=== PATIENT | female | born 1990 | race Caucasian/White ===

== ENCOUNTER 2019-12-13 01:33 | Day surgery (SDC) | payer OTHER, SELFPAY ==
[2019-12-08 15:22] VITALS: BMI 19.0
--- NOTE | 2019-12-12 11:00 | HP_ITS ---
DATE OF SERVICE: HISTORY: A 29-year-old with foreign body in both ears. She is at [facility]. PHYSICAL EXAMINATION: CHEST: Clear. HEART: Without murmurs. ABDOMEN: Soft. EXTREMITIES: Negative ASSESSMENT: Foreign body, both ears. PLAN: Removal of foreign body both ears under general anesthesia. D I MT: [facility]
--- NOTE | 2019-12-13 06:01 | WPDHPUPDATE1 ---
History and Physical Update Update Date/Time: 12/13/19 06:01 History and Physical has been reviewed, including an updated exam of the patient. There are NO changes in the patient's condition. Risks, benefits, and alternatives have been discussed and questions answered. Patient agrees to proceed with procedure.
[2019-12-13 10:39] VITALS: BP 104/85; PULSE 97; RESP 20; TEMP 37.2; O2SAT 100
--- NOTE | 2019-12-13 10:43 | WPDANESEPPF ---
Anes - Initial Pre Proc Eval Procedure: Operation Date: 12/13/19 12:15 Proposed Procedures p Removal Foreign Body Bilateral Ears - Usama Kingston MD Date/Time: 12/13/19 10:43 Surgeon: Usama Kingston MD Pre Op Diagnosis: Foreign body bilateral ears Patient Data Age: 29 Gender: F Height: 1.47 m Weight: 41.28 kg Allergies Allergy/AdvReac Type Severity Reaction Status Date / Time codeine AdvReac Unknown Verified 12/08/19 15:28 haloperidol AdvReac Unknown Verified 12/08/19 15:28 lorazepam AdvReac Unknown Verified 12/08/19 15:28 OPIATES Allergy Severe Unknown Uncoded 12/08/19 15:28 Home Medications Medication Instructions Recorded Confirmed Type acetaminophen 650 mg PO Q8H PRN 09/06/19 12/08/19 History albuterol sulfate [ProAir HFA] 1 puff INHALATION Q6H PRN 09/06/19 12/08/19 History benzocaine 1 applic MUCOUS MEMBRANE Q4H PRN 09/06/19 12/08/19 History carbamazepine 200 mg PO TID 09/06/19 12/08/19 History diazepam 5 mg PO BID 09/06/19 12/08/19 History diphenhydramine HCl 25 mg PO QID 09/06/19 12/08/19 History divalproex 250 mg PO QNOON 09/06/19 12/08/19 History divalproex 500 mg PO DAILY 09/06/19 12/08/19 History ferrous sulfate 325 mg PO BID 09/06/19 12/08/19 History fluticasone propion-salmeterol 1 inh INHALATION Q12H 09/06/19 12/08/19 History [Advair Diskus] fluticasone propionate [Flonase 1 spray INTRANASAL DAILY 09/06/19 12/08/19 History Allergy Relief] magnesium hydroxide [Milk of 30 ml PO DAILY PRN 09/06/19 12/08/19 History Magnesia] pantoprazole 40 mg PO HS 09/06/19 12/08/19 History prazosin 2 mg PO HS 09/06/19 12/08/19 History psyllium 1 packet PO BID 09/06/19 12/08/19 History sennosides-docusate sodium [Senna 1 tab-cap PO BID 09/06/19 12/08/19 History with Docusate Sodium] trazodone 50 mg PO TID 09/06/19 12/08/19 History cholecalciferol (vitamin D3) 25 mcg PO DAILY 12/08/19 12/08/19 History [Vitamin D3] divalproex 1,000 mg PO HS 12/08/19 12/08/19 History polyethylene glycol 3350 17 g PO DAILY PRN 12/08/19 12/08/19 History prazosin 1 mg PO HS 12/08/19 12/08/19 History Patient hx anesthesia problems: none Family hx anesthesia problems: none Anes - Eval Final PreProcedure Day of Procedure 12/13/19 10:43 Patient weight: normal Heart: regular rate and rhythm Lungs: clear to auscultation and normal air movement Airway: Mallampati scale class II Neurological: alert and oriented Last oral intake: >/= 8 hours ASA classification: III Emergent: no Anesthetic plan: proceed Anesthesia type and monitoring: general Informed Consent: The patient's anesthetic plan and its attendant risks and benefits were discussed with the patient/family/POA. Questions were solicited and answers provided to the satisfaction of the patient/family/POA.
[2019-12-13] MEDS: LACTATED RINGERS 1,000 ML 30 ML IV CONT (10:50)
--- NOTE | 2019-12-13 11:24 | SUR.PREOP ---
1020-PT ARRIVED PER [employer]PERVIS[employer]TR[employer] IN WRIST/ANKLE CUFFS, 2 ATTENDANTS WITH PT.
--- NOTE | 2019-12-13 11:36 | PM.PROC ---
Procedure Note - Detailed Date of procedure: 12/13/19 Pre-op diagnosis: Foreign body bilateral ears Procedure performed: crayons were removed from both ears after anesthesia Anesthesia: GLMA Surgeon: Usama Kingston MD Drains: No Pathology: none sent Complications: No immediate complications Disposition: PACU
[2019-12-13 11:48] VITALS: BP 95/68; PULSE 75; RESP 18; TEMP 36.4; O2SAT 100
[2019-12-13 11:55] VITALS: BP 106/77; PULSE 89; RESP 20; O2SAT 99
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
[2019-12-13 12:11] VITALS: BP 91/43; PULSE 111; RESP 12; O2SAT 100
[2019-12-13 12:16] VITALS: BP 134/80; PULSE 90; RESP 18
[2019-12-13] MEDS: DIAZEPAM 5 MG TABLET PO (12:30)
--- NOTE | 2019-12-13 12:36 | SUR.PHASEII ---
1216 anxiety,better with care givers at side. called dr jesus and order for valium given and pt given dose.
[2019-12-13 12:45] VITALS: BP 93/62; PULSE 87; RESP 14
[2019-12-13] MEDS: ONDANSETRON INJ 4 MG/2 ML VIAL IV PUSH (12:45)
== END 2019-12-13 13:09 | disposition home or self-care (01) ==
PROVIDERS: Visit Provider Otolaryngology
PROC: (CPT 69205; principal; 2019-12-13 12:15)
DX: T16.2XXA Foreign body in left ear, initial encounter (principal); T16.1XXA Foreign body in right ear, initial encounter; X58.XXXA Exposure to other specified factors, initial encounter
CPT/HCPCS: 69205; A9270; J2405; J2704; J7120